=== PATIENT | female | born 1975 | race Caucasian/White ===

== ENCOUNTER 2016-06-15 10:32 | Emergency (ER) | payer SELFPAY ==
[2016-06-15 10:36] VITALS: BP 133/84
--- NOTE | 2016-06-15 10:38 | ER Document Report ---
ED Medical Screen (RME) - General Stated Complaint: CONGESTION,EAR PAIN Notes: Patient is a 40-year-old female presents emergency Department complaining of head congestion, cough nonproductive, fever and earache that started 5 days ago. Patient states that her symptoms become worse over the past 3 days with onset of earache today. did not receive a flu shot. taking benadryl and motrin. grandson did test positive for Flu this week I have greeted and performed a rapid initial assessment of this patient. A comprehensive ED assessment and evaluation of the patient, analysis of test results and completion of the medical decision making process will be conducted by additional ED providers. TRAVEL OUTSIDE OF THE [place] IN LAST 30 DAYS: No - Related Data Allergies/Adverse Reactions: Sulfa (Sulfonamide Antibiotics) Allergy (Intermediate, Verified 06/15/16 10:37) Hives Past Medical History - Social History Family history: CAD, Hyperlipidemia, Hypertension - Past Medical History Cardiac Medical History: Reports: Hx Hypertension Pulmonary Medical History: Reports: Hx Asthma, Hx Bronchitis, Hx Pneumonia Denies: Hx Tuberculosis Renal/ Medical History: Reports: Hx Kidney Stones Musculoskeltal Medical History: Reports Hx Musculoskeletal Trauma - ankle Psychiatric Medical History: Reports: Hx Attention Deficit Hyperactivity Disorder, Hx Bipolar Disorder, Hx Depression Traumatic Medical History: Reports: Hx Fractures Past Surgical History: Reports: Hx Kidney (Renal Surgery) - stone removal x5, Hx Tubal Ligation. Denies: Hx Pacemaker - Immunizations Immunizations up to date: Yes Hx Diphtheria, Pertussis, Tetanus Vaccination: Yes Physical Exam - Vital signs Vitals: Temp Pulse Resp BP Pulse Ox 98.1 F 102 H 18 133/84 H 98 06/15/16 10:35 06/15/16 10:35 06/15/16 10:35 06/15/16 10:35 06/15/16 10:35 Course - Vital Signs Vital signs: Temp Pulse Resp BP Pulse Ox 98.1 F 102 H 18 133/84 H 98 06/15/16 10:35 06/15/16 10:35 06/15/16 10:35 06/15/16 10:35 06/15/16 10:35
--- NOTE | 2016-06-15 11:09 | ER Document Report ---
ED Respiratory Problem - General Chief Complaint: Cold Symptoms Stated Complaint: CONGESTION,EAR PAIN Mode of Arrival: Ambulatory Information source: Patient TRAVEL OUTSIDE OF THE [place] IN LAST 30 DAYS: No - HPI Patient complains to provider of: Cough, Other - EAR PAIN Onset: Other - 5 DAYS Duration: Continuous Initiating Event: Allergy, URI Quality of pain: Achy, Dull Severity: Moderate Cough: Productive - SLIGHT Sputum amount: Scant Sputum color: Yellow Sputum consistency: Mucoid Associated symptoms: Cough, Earache - RIGHT, Fever, Headache, Sore Throat. denies: Short of breath, Wheezing Similar symptoms previously: Yes - NOT RECENT Recently seen / treated by doctor: No - Related Data Allergies/Adverse Reactions: Sulfa (Sulfonamide Antibiotics) Allergy (Intermediate, Verified 06/15/16 10:37) Hives Past Medical History - General Information source: Patient - Social History Smoking Status: Current Every Day Smoker Chew tobacco use (# tins/day): No Frequency of alcohol use: None Drug Abuse: None Lives with: Spouse/Significant other Family History: Reviewed & Not Pertinent Patient has suicidal ideation: No Patient has homicidal ideation: No - Past Medical History Cardiac Medical History: Reports: Hx Hypertension Pulmonary Medical History: Reports: Hx Asthma, Hx Bronchitis, Hx Pneumonia Denies: Hx Tuberculosis Neurological Medical History: Reports: None Endocrine Medical History: Reports: None Renal/ Medical History: Reports: None, Hx Kidney Stones. Denies: Hx Peritoneal Dialysis Malignancy Medical History: Reports: None GI Medical History: Reports: None Musculoskeltal Medical History: Reports Hx Musculoskeletal Trauma - ankle Psychiatric Medical History: Reports: Hx Attention Deficit Hyperactivity Disorder, Hx Bipolar Disorder, Hx Depression Traumatic Medical History: Reports: Hx Fractures Past Surgical History: Reports: Hx Kidney (Renal Surgery) - stone removal x5, Hx Tubal Ligation. Denies: Hx Pacemaker - Immunizations Immunizations up to date: Yes Hx Diphtheria, Pertussis, Tetanus Vaccination: Yes Review of Systems - Review of Systems Constitutional: See HPI EENT: See HPI Cardiovascular: No symptoms reported Respiratory: See HPI Gastrointestinal: No symptoms reported Genitourinary: No symptoms reported Female Genitourinary: denies: Musculoskeletal: No symptoms reported Skin: No symptoms reported Neurological/Psychological: No symptoms reported Physical Exam - Vital signs Vitals: Temp Pulse Resp BP Pulse Ox 98.1 F 102 H 18 133/84 H 98 06/15/16 10:35 03/18/17 10:35 06/15/16 10:35 06/15/16 10:35 06/15/16 10:35 Interpretation: Tachycardic. No: Hypotensive, Hypoxic, Tachypneic, Febrile - General General appearance: Appears well, Alert In distress: None - HEENT Head: Normocephalic Eyes: Normal Conjunctiva: Normal Ears: Normal External canal: Normal Tympanic membrane: Bulging - RIGHT, Injected Nasal: Purulent discharge Mouth/Lips: Normal Mucous membranes: Normal Pharynx: Normal Neck: Normal. No: Anterior cervical chain, Posterior cervical chain - Respiratory Respiratory status: No respiratory distress Breath sounds: Normal - Cardiovascular Rhythm: Regular Heart sounds: Normal auscultation Murmur: No - Abdominal Inspection: Normal, Obese - Extremities General upper extremity: Normal inspection General lower extremity: Normal inspection - Neurological Neuro grossly intact: Yes Cognition: Normal Orientation: AAOx4 - Psychological Associated symptoms: Normal affect, Normal mood - Skin Skin Temperature: Warm Skin Moisture: Dry Skin Color: Normal Skin Turgor: Elastic Course - Vital Signs Vital signs: Temp Pulse Resp BP Pulse Ox 98.1 F 102 H 18 133/84 H 98 06/15/16 10:35 06/15/16 10:35 06/15/16 11:00 06/15/16 10:35 06/15/16 10:35 Discharge - Discharge Clinical Impression: Otitis media Qualifiers: Otitis media type: suppurative Laterality: right Chronicity: acute Recurrence: not specified as recurrent Spontaneous tympanic membrane rupture: without spontaneous rupture Qualified Code(s): H66.001 - Acute suppurative otitis media without spontaneous rupture of ear drum, right ear Condition: Stable Disposition: HOME, SELF-CARE Instructions: Otitis Media ([facility]), Augmentin ([facility]) Additional Instructions: REST, DRINK PLENTY OF FLUIDS. TAKE AUGMENTIN DIRECTED. TAKE BENADRYL OR OTHER ANTIHISTAMINE /DECONGESTANT NEEDED FOR CONGESTION. FOLLOW UP IF NOT IMPROVING IN 3-4 DAYS. Prescriptions: Amox Tr/Potassium Clavulanate [Augmentin 500-125 Tablet] 1 each PO TID #20 tablet
== END 2016-06-15 11:51 | disposition home or self-care (01) ==
LOC: ER 10:32
DX: H66.001 Acute suppurative otitis media without spontaneous rupture of ear drum, right ear (principal); R09.81 Nasal congestion; H92.09 Otalgia, unspecified ear; F17.200 Nicotine dependence, unspecified, uncomplicated
CPT/HCPCS: 87804; 99283

== ENCOUNTER 2016-07-21 12:11 | Emergency (ER) | payer SELFPAY ==
--- NOTE | 2016-07-21 12:36 | ER Document Report ---
ED Medical Screen (RME) - General Chief Complaint: Flank Pain Stated Complaint: RIGHT SIDE FLANK PAIN Notes: Patient's complaining of pain in her right side and flank region for the past 2 days. Initially, it would come and go, but now it has become more constant. She's had previous pains of this same sort in the past when she's had kidney stones or kidney infections. She's had some nausea and vomited twice yesterday , but none today. No diarrhea. Denies fever. Patient had a tubal ligation. No other surgeries. In the past, treated for depression, but no treatment now. TRAVEL OUTSIDE OF THE [place] IN LAST 30 DAYS: No - Related Data Allergies/Adverse Reactions: Sulfa (Sulfonamide Antibiotics) Allergy (Intermediate, Verified 07/21/16 12:16) Hives Past Medical History - Social History Family history: CAD, Hyperlipidemia, Hypertension - Past Medical History Cardiac Medical History: Reports: Hx Hypertension Pulmonary Medical History: Reports: Hx Asthma, Hx Bronchitis, Hx Pneumonia Denies: Hx Tuberculosis Renal/ Medical History: Reports: Hx Kidney Stones. Denies: Hx Peritoneal Dialysis Musculoskeltal Medical History: Reports Hx Musculoskeletal Trauma - ankle Psychiatric Medical History: Reports: Hx Attention Deficit Hyperactivity Disorder, Hx Bipolar Disorder, Hx Depression Traumatic Medical History: Reports: Hx Fractures Past Surgical History: Reports: Hx Kidney (Renal Surgery) - stone removal x5, Hx Tubal Ligation. Denies: Hx Pacemaker - Immunizations Immunizations up to date: Yes Hx Diphtheria, Pertussis, Tetanus Vaccination: Yes Physical Exam - Vital signs Vitals: Temp Pulse Resp BP Pulse Ox 97.9 F 91 18 134/69 H 96 07/21/16 12:16 07/21/16 12:16 07/21/16 12:16 07/21/16 12:16 07/21/16 12:16 Course - Vital Signs Vital signs: Temp Pulse Resp BP Pulse Ox 97.9 F 91 18 134/69 H 96 07/21/16 12:16 07/21/16 12:16 07/21/16 12:16 07/21/16 12:16 07/21/16 12:16
[2016-07-21 12:57] LABS: ABSOLUTE BASOPHILS # (AUTO) 0.1 10^3/uL (0.0-0.2); ABSOLUTE EOSINOPHILS # (AUTO) 0.3 10^3/uL (0.0-0.6); ABSOLUTE LYMPHOCYTES (AUTO) 2.8 10^3/uL (0.5-4.7); ABSOLUTE MONOCYTES (AUTO) 0.8 10^3/uL (0.1-1.4); BASOPHILS % (AUTO) 0.4 % (0-2); EOSINOPHILS % (AUTO) 2.2 % (0-6); HEMATOCRIT 39.3 % (36.0-47.0); HEMOGLOBIN 13.3 g/dL (12.0-15.5); HGB HCT DIFFERENCE 0.6; LYMPHOCYTES % (AUTO) 19.8 % (13-45); MEAN CORPUSCULAR HEMOGLOBIN 28.2 pg (27.0-33.4); MEAN CORPUSCULAR HGB CONC 33.7 g/dL (32.0-36.0); MEAN CORPUSCULAR VOLUME 84 fl (80-97); MONOCYTES % (AUTO) 5.8 % (3-13); RED CELL DISTRIBUTION WIDTH 13.3 % (11.5-14.0); SEGMENTED NEUTROPHILS % (AUTO) 71.8 % (42-78)
[2016-07-21 13:03] LABS: AMORPHOUS SEDIMENT,URINE TRACE /HPF; APPEARANCE,URINE SLIGHTLY-CLOUDY; BILIRUBIN,URINE NEGATIVE (NEGATIVE); GLUCOSE, URINE NEGATIVE (NEGATIVE); KETONES,URINE NEGATIVE (NEGATIVE); LEUKOCYTE ESTERASE,URINE MODERATE (NEGATIVE); NITRITE,URINE NEGATIVE (NEGATIVE); PROTEIN,URINE NEGATIVE (NEGATIVE); URINE SPECIFIC GRAVITY 1.011; UROBILINOGEN,URINE NEGATIVE mg/dL (<2.0)
[2016-07-21 13:13] LABS: ALANINE AMINOTRANSFERASE 24 U/L (9-52); ALBUMIN 3.9 g/dL (3.5-5.0); ALKALINE PHOSPHATASE 94 U/L (38-126); ANION GAP 11 (5-19); ASPARTATE AMINO TRANSFERASE 19 U/L (14-36); BILIRUBIN,DIRECT 0.2 mg/dL (0.0-0.4); BILIRUBIN,TOTAL 0.3 mg/dL (0.2-1.3); BLOOD UREA NITROGEN 15 mg/dL (7-20); CARBON DIOXIDE 23 mmol/L (22-30); CHLORIDE 105 mmol/L (98-107); CREATININE RESULT 1.05 mg/dL (0.52-1.25); GLUCOSE 89 mg/dL (75-110); LIPASE 89.3 U/L (23-300); POTASSIUM 4.4 mmol/L (3.6-5.0); SODIUM 139.4 mmol/L (137-145); TOTAL PROTEIN 6.5 g/dL (6.3-8.2)
[2016-07-21] MEDS ORDERED: KETOROLAC TROMETHAMINE 60 MG/2 ML SDV IM ONE (13:49)
[2016-07-21] MEDS ORDERED: NITROFURANTOIN MONOHYD/M-CRYST 100 MG CAPSULE PO ONE (13:49)
--- NOTE | 2016-07-21 13:50 | ER Document Report ---
ED GI/ - General Time seen by provider: 13:40 Mode of Arrival: Ambulatory Information source: Patient TRAVEL OUTSIDE OF THE [place] IN LAST 30 DAYS: No - HPI Patient complains to provider of: Flank pain Onset: Other - see HPI note Similar symptoms previously: No Recently seen / treated by doctor: No <SHIRLEY AU - Last Filed: 07/21/16 15:47> <MICH BENJAMIN - Last Filed: 07/22/16 05:37> - General Chief Complaint: Flank Pain Stated Complaint: RIGHT SIDE FLANK PAIN Notes: Patient is a 40-year-old female patient of the emergency department for right flank pain. Patient states the pain started 3 days ago. Patient states she has also had nausea and vomiting with painful urination. Patient has a history of kidney stones and UTIs. Patient states that initially her right flank plain , was waxing and waning and now it has become more constant. Patient states that she has pain before she had kidney stones or a UTI. Patient had some nausea and vomiting yesterday but none today. Patient denies any diarrhea or fever. Patient is allergic to sulfa drugs. (SHIRLEY AU) - Related Data Allergies/Adverse Reactions: Sulfa (Sulfonamide Antibiotics) Allergy (Intermediate, Verified 07/21/16 12:16) Hives Past Medical History - General Information source: Patient - Social History Smoking Status: Current Every Day Smoker Chew tobacco use (# tins/day): No Frequency of alcohol use: None Drug Abuse: None Family History: None Patient has suicidal ideation: No Patient has homicidal ideation: No - Past Medical History Cardiac Medical History: Reports: Hx Hypertension Pulmonary Medical History: Reports: Hx Asthma, Hx Bronchitis, Hx Pneumonia Renal/ Medical History: Reports: Hx Kidney Stones Musculoskeltal Medical History: Reports Hx Musculoskeletal Trauma - ankle Psychiatric Medical History: Reports: Hx Attention Deficit Hyperactivity Disorder, Hx Bipolar Disorder, Hx Depression Traumatic Medical History: Reports: Hx Fractures Past Surgical History: Reports: Hx Kidney (Renal Surgery) - stone removal x5, Hx Tubal Ligation - Immunizations Immunizations up to date: Yes Hx Diphtheria, Pertussis, Tetanus Vaccination: Yes <SHIRLEY AU - Last Filed: 07/21/16 15:47> Review of Systems - Review of Systems Constitutional: No symptoms reported EENT: No symptoms reported Cardiovascular: No symptoms reported Respiratory: No symptoms reported Gastrointestinal: See HPI, Nausea, Vomiting Genitourinary: See HPI, Dysuria, Flank pain Female Genitourinary: No symptoms reported Musculoskeletal: No symptoms reported Skin: No symptoms reported Hematologic/Lymphatic: No symptoms reported Neurological/Psychological: No symptoms reported -: Yes All other systems reviewed and negative <SHIRLEY AU - Last Filed: 07/21/16 15:47> Physical Exam - Vital signs Interpretation: Normal - General General appearance: Appears well, Alert In distress: Mild - HEENT Head: Normocephalic, Atraumatic Eyes: Normal Pupils: PERRL Mucous membranes: Moist - Respiratory Respiratory status: No respiratory distress Chest status: Nontender Breath sounds: Normal Chest palpation: Normal - Cardiovascular Rhythm: Regular Heart sounds: Normal auscultation Murmur: No - Abdominal Inspection: Normal Distension: No distension Bowel sounds: Normal Tenderness: Nontender Organomegaly: No organomegaly - Back Back: Normal, Nontender - Extremities General upper extremity: Normal inspection, Normal ROM, Normal strength General lower extremity: Normal inspection, Normal ROM, Normal strength - Neurological Neuro grossly intact: Yes Cognition: Normal Orientation: AAOx4 [place] Coma Scale Eye Opening: Spontaneous [place] Coma Scale Verbal: Oriented [place] Coma Scale Motor: Obeys Commands [place] Coma Scale Total: 15 Speech: Normal Sensory: Normal - Psychological Associated symptoms: Normal affect, Normal mood - Skin Skin Temperature: Warm Skin Moisture: Dry <SHIRLEY AU - Last Filed: 07/21/16 15:47> Course - Laboratory Result Diagrams: 07/21/16 12:35 07/21/16 12:35 <CRISTIANMAYANKSHIRLEY - Last Filed: 07/21/16 15:47> - Laboratory Result Diagrams: 07/21/16 12:35 07/21/16 12:35 <MICH BENJAMIN - Last Filed: 07/22/16 05:37> - Re-evaluation Re-evalutation: 07/21/16 13:52 Patient presents to the emergency department with right flank pain 2 days and urinary symptoms. We'll been nausea but no vomiting. Sees a primary care community clinic but hasn't seen them and months. Patient has multiple ED visits including recurrent flank pain multiple CT scans for kidney stones. She is well-appearing nontoxic in no acute distress afebrile with vital signs stable no sepsis abdomen is soft no guarding rebound rigidity on serial abdominal examinations. Urine has blood in it positive for leukocyte esterase. Patient is given Toradol Macrobid. After reviewing the number of CAT scans that she had it all Yudith is an emergent condition she is in no acute distress no reproducible tenderness on examination or to follow-up with the clinic in 12-24 hours recheck reevaluation in her urologist as needed. She is to stop drinking soda and tea. I gave her Naprosyn Macrobid and Zofran. Discussed reasons for ED return sooner 07/22/16 05:37 (MICH BENJAMIN) - Vital Signs Vital signs: Temp Pulse Resp BP Pulse Ox 97.8 F 78 20 125/80 98 07/21/16 14:27 07/21/16 14:27 07/21/16 14:27 07/21/16 14:27 07/21/16 14:27 - Laboratory Laboratory results interpreted by me: 07/21/16 07/21/16 07/21/16 12:35 12:35 12:35 WBC 14.0 H Absolute Neutrophils 10.0 H Est GFR (Non-Af Amer) 58 L Urine Blood LARGE H Ur Leukocyte Esterase MODERATE H Discharge <SHIRLEY AU - Last Filed: 07/21/16 15:47> <MICH BENJAMIN - Last Filed: 07/22/16 05:37> - Discharge Clinical Impression: flank pain, UTI, history of kidney stone Condition: Stable Disposition: HOME, SELF-CARE Additional Instructions: Flank Pain We weren't able to prove an exact cause for your flank pain. Pain in the flank can be caused by a muscle strain or spasm. Sometimes a kidney stone causes pain, but can't be found on our tests. Infection in the kidney should be evident on a urine test. Early shingles can occasionally cause flank pain, without the rash that proves the diagnosis. On rare occasions, disease of the pancreas, aorta, spleen, or colon can create pain in the flank. At this time, there's no evidence of a dangerous condition, and it seems safe for you to be at home. If the pain goes away and does not come back, no further testing will be needed. If pain persists, or becomes more severe, we may need to repeat some tests or order additional new testing. Blood in the urine, urgency to urinate frequently, and pain that radiates to the groin can indicate a kidney stone. Fever may mean that the pain is due to infection, either of the kidney or the colon (diverticulitis). If your pain is early shingles, you should develop an eruption of blisters in the painful area within a few days. Call the doctor or return if you have pain that is spreading or becoming more severe, pain that does not resolve with time, fever, or any other new symptoms. Urinary Tract Infection Your evaluation indicates that you have a urinary tract infection. This is due to germs growing in the bladder. This is a common problem. This infection usually responds quickly to antibiotics. Your antibiotic should be taken exactly as prescribed. Drink plenty of fluids -- three to four quarts a day. Occasionally, a bladder anesthetic will be prescribed to help stop the feeling of urgency until the antibiotic has a chance to clear the infection. This may cause your urine to be dark orange. Certain urine infections require a culture. If the doctor obtained a culture, the results will be back in two days. You should call to see if a change in treatment is needed. A repeat urinalysis after you finish treatment is often recommended. The physician will let you know if further testing is required. Call the doctor if you develop fever, chills, flank pain, inability to urinate, or blood in the urine. Prescriptions: Naproxen [Naprosyn 250 mg Tablet] 250 mg PO DAILY PRN #12 tablet PRN Reason: Nitrofurantoin/Nitrofuran Mac [Macrobid 100 mg Capsule] 1 tab PO BID #20 capsule Ondansetron [Zofran Odt 4 mg Tablet] 1 - 2 tab PO Q4H PRN #15 tab.rapdis PRN Reason: For Nausea/Vomiting Referrals: [facility] [Provider Group] - Follow up tomorrow (Call for an appointment to be seen in follow-up in 1-2 days return for increasing worsening or new symptoms) Scribe Attestation: 07/21/16 13:54 I personally performed the services described in the documentation reviewed the documentation recorded by my scribe in my presence and it accurately and completely records my words and actions (MICH BENJAMIN) Scribe Documentation - Scribe Written by Scribe:: Shirley Au 07/21/16 15:50 acting as scribe for Dr.:: Live <SHIRLEY AU - Last Filed: 07/21/16 15:47>
[2016-07-21 14:45] VITALS: BP 125/80
== END 2016-07-21 14:24 | disposition home or self-care (01) ==
LOC: ER 12:11
DX: N39.0 Urinary tract infection, site not specified (principal); R10.9 Unspecified abdominal pain; R11.2 Nausea with vomiting, unspecified; F17.200 Nicotine dependence, unspecified, uncomplicated
CPT/HCPCS: 99284; 96372; 36415; 83690; 84703; 85025; 80053; 81001; J1885; J8499

== ENCOUNTER 2016-09-03 19:38 | Emergency (ER) | payer SELFPAY ==
[2016-09-03 20:12] VITALS: BP 141/87
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
[2016-09-03] MEDS ORDERED: IBUPROFEN 800 MG TABLET PO ONE (21:05)
[2016-09-03] MEDS ORDERED: MECLIZINE HCL 25 MG TABLET PO ONE (21:05)
[2016-09-03] MEDS ORDERED: ACETAMINOPHEN 325 MG TABLET PO ONE (21:05)
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
== END 2016-09-03 22:34 | disposition home or self-care (01) ==
LOC: ER 19:38
DX: S29.012A Strain of muscle and tendon of back wall of thorax, initial encounter (principal); S06.0X0A Concussion without loss of consciousness, initial encounter; R42 Dizziness and giddiness; M54.6 Pain in thoracic spine; R11.0 Nausea; V87.7XXA Person injured in collision between other specified motor vehicles (traffic), initial encounter
CPT/HCPCS: 72070; 99284

== ENCOUNTER 2016-09-28 12:42 | Emergency (ER) | payer SELFPAY ==
--- NOTE | 2016-09-28 13:09 | ER Document Report ---
ED Medical Screen (RME) - General Chief Complaint: Inability to Void Stated Complaint: UNABLE TO URINATE Time Seen by Provider: 09/28/16 12:56 Notes: Patient says she is experiencing pain in her lower mid anterior abdomen, and the suprapubic region, that began yesterday. Patient has not had any bowel movement and only a few drops of urine passed in the past 2 days. She never had this happen before. She was nauseated but had some Zofran that she took at home. She has been constipated with no bowel movement for 5 days, her normal being about every other day. Has some symptoms suggestive of a UTI. No fever. No abdominal surgeries except for tubal ligation. TRAVEL OUTSIDE OF THE [place] IN LAST 30 DAYS: No - Related Data Allergies/Adverse Reactions: Sulfa (Sulfonamide Antibiotics) Allergy (Intermediate, Verified 09/28/16 12:48) Hives Past Medical History - Social History Chew tobacco use (# tins/day): No Frequency of alcohol use: None Drug Abuse: None Family history: CAD, Hyperlipidemia, Hypertension - Past Medical History Cardiac Medical History: Reports: Hx Hypertension Pulmonary Medical History: Reports: Hx Asthma, Hx Bronchitis, Hx Pneumonia Denies: Hx Tuberculosis Renal/ Medical History: Reports: Hx Kidney Stones. Denies: Hx Peritoneal Dialysis Musculoskeltal Medical History: Reports Hx Musculoskeletal Trauma - ankle Psychiatric Medical History: Reports: Hx Attention Deficit Hyperactivity Disorder, Hx Bipolar Disorder, Hx Depression Traumatic Medical History: Reports: Hx Fractures Past Surgical History: Reports: Hx Kidney (Renal Surgery) - stone removal x5, Hx Tubal Ligation. Denies: Hx Pacemaker - Immunizations Immunizations up to date: Yes Hx Diphtheria, Pertussis, Tetanus Vaccination: Yes Physical Exam - Vital signs Vitals: Temp Pulse Resp BP Pulse Ox 98.0 F 93 18 132/82 H 97 09/28/16 12:46 09/28/16 12:46 09/28/16 12:46 09/28/16 12:46 09/28/16 12:46 Course - Vital Signs Vital signs: Temp Pulse Resp BP Pulse Ox 98.0 F 93 18 132/82 H 97 09/28/16 12:46 09/28/16 12:46 09/28/16 12:46 09/28/16 12:46 09/28/16 12:46
[2016-09-28 13:30] LABS: ABSOLUTE BASOPHILS # (AUTO) 0.1 10^3/uL (0.0-0.2); ABSOLUTE EOSINOPHILS # (AUTO) 0.3 10^3/uL (0.0-0.6); ABSOLUTE LYMPHOCYTES (AUTO) 2.6 10^3/uL (0.5-4.7); ABSOLUTE MONOCYTES (AUTO) 0.6 10^3/uL (0.1-1.4); ABSOLUTE NEUT (AUTO) 6.6 10^3/uL (1.7-8.2); BASOPHILS % (AUTO) 0.5 % (0-2); EOSINOPHILS % (AUTO) 3.3 % (0-6); HEMATOCRIT 42.9 % (36.0-47.0); HEMOGLOBIN 14.3 g/dL (12.0-15.5); LYMPHOCYTES % (AUTO) 25.8 % (13-45); MEAN CORPUSCULAR HEMOGLOBIN 28.4 pg (27.0-33.4); MEAN CORPUSCULAR HGB CONC 33.3 g/dL (32.0-36.0); MEAN CORPUSCULAR VOLUME 85 fl (80-97); RED BLOOD COUNT 5.03 10^6/uL (3.72-5.28); RED CELL DISTRIBUTION WIDTH 13.6 % (11.5-14.0); SEGMENTED NEUTROPHILS % (AUTO) 64.4 % (42-78); WHITE BLOOD COUNT 10.2 10^3/uL (4.0-10.5)
[2016-09-28 13:53] LABS: ALANINE AMINOTRANSFERASE 28 U/L (9-52); ALBUMIN 3.9 g/dL (3.5-5.0); ALKALINE PHOSPHATASE 81 U/L (38-126); ANION GAP 11 (5-19); ASPARTATE AMINO TRANSFERASE 20 U/L (14-36); BILIRUBIN,DIRECT 0.3 mg/dL (0.0-0.4); BILIRUBIN,TOTAL 0.6 mg/dL (0.2-1.3); BLOOD UREA NITROGEN 13 mg/dL (7-20); CALCIUM 8.8 mg/dL (8.4-10.2); CARBON DIOXIDE 24 mmol/L (22-30); CHLORIDE 104 mmol/L (98-107); CREATININE RESULT 0.95 mg/dL (0.52-1.25); GLUCOSE 110 mg/dL (75-110); LIPASE 75.9 U/L (23-300); POTASSIUM 4.3 mmol/L (3.6-5.0); SODIUM 139.2 mmol/L (137-145); TOTAL PROTEIN 6.9 g/dL (6.3-8.2)
--- NOTE | 2016-09-28 14:45 | ER Document Report ---
ED GI/ - General Chief Complaint: Inability to Void Stated Complaint: UNABLE TO URINATE Time Seen by Provider: 09/28/16 12:56 Notes: Patient is a 40-year-old female who comes emergency department complaining of urinary retention and constipation. Patient admits to abdominal fullness and bloating has become increasingly worse over the past 5 days. She states her last normal bowel movement was 5 days ago with no evidence of blood or dark tarry stool. She denies any nausea or vomiting. Any fevers or chills. She also states that she has not been able to urinate more than some trouble for the past 2 days. She admits to flank pain on the left. Past medical history significant for history of kidney stones Past surgical history significant for tubal ligation Daily smoker, admits to social alcohol and denies any drug use. TRAVEL OUTSIDE OF THE [place] IN LAST 30 DAYS: No - Related Data Allergies/Adverse Reactions: Sulfa (Sulfonamide Antibiotics) Allergy (Intermediate, Verified 09/28/16 12:48) Hives Past Medical History - Social History Smoking Status: Current Every Day Smoker Chew tobacco use (# tins/day): No Frequency of alcohol use: None Drug Abuse: None Family History: None Patient has suicidal ideation: No Patient has homicidal ideation: No - Past Medical History Cardiac Medical History: Reports: Hx Hypertension Pulmonary Medical History: Reports: Hx Asthma, Hx Bronchitis, Hx Pneumonia Denies: Hx Tuberculosis Renal/ Medical History: Reports: Hx Kidney Stones. Denies: Hx Peritoneal Dialysis Musculoskeltal Medical History: Reports Hx Musculoskeletal Trauma - ankle Psychiatric Medical History: Reports: Hx Attention Deficit Hyperactivity Disorder, Hx Bipolar Disorder, Hx Depression Traumatic Medical History: Reports: Hx Fractures Past Surgical History: Reports: Hx Kidney (Renal Surgery) - stone removal x5, Hx Tubal Ligation. Denies: Hx Pacemaker - Immunizations Immunizations up to date: Yes Hx Diphtheria, Pertussis, Tetanus Vaccination: Yes Review of Systems - Review of Systems Constitutional: No symptoms reported Gastrointestinal: See HPI Genitourinary: See HPI Female Genitourinary: No symptoms reported -: Yes All other systems reviewed and negative Physical Exam - Vital signs Vitals: Temp Pulse Resp BP Pulse Ox 98.0 F 93 18 132/82 H 97 09/28/16 12:46 09/28/16 12:46 09/28/16 12:46 09/28/16 12:46 09/28/16 12:46 - Notes Notes: PHYSICAL EXAM GENERAL: Alert, interacts well. HEAD: Normocephalic, atraumatic. LUNGS: Clear to auscultation bilaterally, no wheezes, rales, or rhonchi. No respiratory distress. HEART: Regular rate and rhythm. No murmurs, gallops, or rubs. ABDOMEN: Soft, obese, nondistended, minimally tender in the LLQ and suprapubic area. No guarding, rebound, or rigidity.. Bowel sounds present in all 4 quadrants. EXTREMITIES: Moves all 4 extremities spontaneously. No edema, radial and dorsalis pedis pulses 2/4 bilaterally. No cyanosis. NEUROLOGICAL: Alert and oriented x4. Normal speech. PSYCH: Normal affect, normal mood. SKIN: Warm, dry, normal turgor. No rashes or lesions noted Course - Re-evaluation Re-evalutation: 09/28/16 16:29 Patient is a 40-year-old female who is hemodynamically stable, no acute distress and afebrile. Laboratory evaluation showed stable CBC and CMP are within normal limits, no evidence of leukocytosis, anemia, abnormal kidney or liver function. Urinalysis had any evidence of UTI. CT of the abdomen and pelvis for kidney stone protocol shows a 2 mm stone at the UVJ on the left ureter without any evidence of hydronephrosis bilaterally. Also evidence of stool throughout the colon without any evidence of obstruction or perforation. Patient is tolerating p.o. without any difficulty. Will discharge home constipation regimen and medication for kidney stone and to follow-up with urology. Patient is agreeable with plan. Medina was removed at the bedside. - Vital Signs Vital signs: Temp Pulse Resp BP Pulse Ox 98.0 F 93 18 132/82 H 97 09/28/16 12:46 09/28/16 12:46 09/28/16 12:46 09/28/16 12:46 09/28/16 12:46 - Laboratory Result Diagrams: 09/28/16 13:20 09/28/16 13:20 Laboratory results interpreted by me: 09/28/16 14:35 Urine Blood SMALL H - Diagnostic Test Radiology reviewed: Image reviewed, Reports reviewed Discharge - Discharge Clinical Impression: Kidney stone Constipation Qualifiers: Constipation type: unspecified constipation type Qualified Code(s): K59.00 - Constipation, unspecified Condition: Good Disposition: HOME, SELF-CARE Additional Instructions: ABDOMINAL PAIN: There are many causes of abdominal pain. Pain can mean a serious problem requiring surgery (such as appendicitis). It can also be an innocent problem that goes away on its own (such as a viral infection). Often, time must pass to determine the cause of pain. The physician does not feel that hospitalization is necessary, at present. Things may change within the next 24 hours. Call the doctor or come back for re- examination if any problems occur, such as: (1) Pain that becomes more severe, steady, or becomes concentrated in one specific area. Also, pain that is more severe with movement or coughing. (2) Vomiting that persists or becomes more frequent. (3) Blood in the vomitus, urine, or bowel movements. Blood in the stool may have a tarry or black appearance. (4) Shaking chills or fever greater than 100 degrees F. (5) The abdomen becomes more distended or swollen. (6) Bowel movements cease. (7) Failure to improve as expected. NORMAL EXAM AND WORKUP: At this time, your examination and workup show no significant abnormality. No significant abnormal physical findings are noted. All laboratory, EKG, and imaging (x-ray, CT scans, ultrasound) studies that were ordered show no significant abnormality. Although your examination and all studies that were ordered showed no significant abnormal finding, there are no examinations and no studies that are 100% accurate. There is always the possibility that some abnormality could exist and not be detected with physical examination or within the limits and capabilities of laboratory and other studies. You should return or follow up as you were instructed on your visit today for further evaluation if your symptoms do not resolve. CONSTIPATION: Constipation is a common problem. It is especially likely as you get older. Constipation is a common cause of abdominal pain, but sometimes causes no symptoms at all. Causes of constipation include certain medications, dehydration, diets, inactivity, and low-fiber intake. Rarely, it can be a symptom of underlying disease. The physician has evaluated you for this. Avoid constipation by eating a diet high in fiber, fruits, and vegetables. Drink plenty of liquids. Get regular exercise. If possible, avoid constipating medicines like narcotic pain medication. Some vitamin tablets can cause constipation. Stool softeners may be needed for difficult cases. An excellent stool softener is Konsyl which is available at [employer], and [employer] drug store. Just add a teaspoon to a glass of pineapple or orange juice daily or twice a day if needed. Laxatives are useful for occasional constipation. You should use them only when necessary. Too-frequent use can make your bowels dependent on them. Some over the counter laxatives available without prescription are: Milk of Magnesia, 1-2 tablespoons twice a day Dulcolax, 5 mg pill or 10 mg suppository. Citrate of Magnesia, 4-5 ounces a day for a day or two For acute constipation, Fleet's Enemas and Dulcolax suppositories are helpful. Chronic, briquette maker use of laxatives or enemas is not a good idea. Your bowel may become dependant on them. You do not need to have a bowel movement every day. Many people do fine with a bowel movement every three or four days. You should call your doctor or return for re-evaluation if you pass blood in the stool, or if you develop fever or increasing abdominal pain. BULK LAXATIVES: Bulk laxatives make the stool softer and bulkier. They're useful for preventing constipation. You can choose between psyllium, methylcellulose, and polycarbophil. They are available without a prescription. Psyllium brand names include Konsyl, Metamucil, Perdiem, Effer-Syllium and Hydrocil. It's available as powder, flavored drink powder, or chewable. The usual dose of psyllium powder is one heaping teaspoon in water each morning, increasing to twice a day if needed. [place] juice can disguise the slightly grainy texture. Methylcellulose is marketed as Citrucel and other brands. The average dose is two grams in a cup of water one to three times a day. Polycarbophil is marketed as Fiber-Con. Take two tablets with a cup of water one to three times a day. LAXATIVE: A laxative agent has been prescribed for your condition. This should result in passage of stool within 12 hours. Some mild intestinal cramping is common as the hard stool begins to move. You may have loose or runny stools for a short time. Contact your doctor if there is severe cramping, vomiting, or passage of blood. Return for further care if this medicine fails to improve your condition. KIDNEY STONE: You are passing or have passed a kidney stone. These stones are usually due to increased calcium or uric acid concentrations in your urine. Stones within the kidney itself are not painful. The pain occurs as the stone leaves the kidney to pass down the long tube, called the ureter, leading to the bladder. If the stone is small, it will usually pass by itself. Most patients can pass the stone at home. You will usually receive medications for pain, nausea or vomiting, and sometimes a medication to assist in passing the kidney stone. However, if the pain is very severe or if vomiting prevents you from taking oral pain medications, you may need to return for further treatment. Drink three or four quarts of fluids per day. You will be given pain medication (if needed) and urine strainers. Strain all your urine to see if the stone passes. If your doctor has asked you to bring the stone in for analysis, return with the stone once it has passed. Return if pain or vomiting become severe, if you develop a high fever, if you are unable to pass your urine, or if other unusual symptoms occur. ANTINAUSEA MEDICATION: You have been given a medication to suppress nausea and vomiting. This type of medication can be given as a shot, pill, or suppository. It will usually last for many hours. Pills and shots usually last six to eight hours, suppositories last about 12 hours. For the typical illness, only one or two doses of the medication may be necessary. Mild lightheadedness may occur. This type of medicine can cause drowsiness. Do not drive or operate dangerous machinery while under its influence. Do not mix with alcohol. See your doctor at once if you have muscle spasms or tightness, or uncontrollable motions (particularly of the neck, mouth, or jaw). Persistent vomiting or severe lightheadedness should also be evaluated by the physician. FLOMAX (tamsulosin): Flomax is a medicine that shrinks the prostate gland. It helps relieve symptoms of benign prostatic hypertrophy, such as frequent urination, weak stream, and inadequate emptying. It has been shown to dilate the ureter (tube leading from the kidney to the bladder) and help in passing kidney stones Flomax usually causes no side effects. You may notice slight tiredness and dizziness for a few days. Some patients develop nasal congestion. Rarely, impotence can occur. If the symptoms are bothersome and don't improve with continued use, call your doctor. Contact your doctor or return if you have fainting spells, severe weakness or dizziness, shortness of breath, or rash. FOLLOW-UP CARE: If you have been referred to a physician for follow-up care, call the physician s office for an appointment as you were instructed or within the next two days. If you experience worsening or a significant change in your symptoms, notify the physician immediately or return to the Emergency Department at any time for re-evaluation. Prescriptions: Tramadol HCl 50 mg PO Q8HP PRN #15 tablet PRN Reason: Tamsulosin HCl [Flomax 0.4 mg Cap.sr] 0.4 mg PO DAILY #7 cap.sr.24h Referrals: [facility] [Provider Group] - Follow up in 3-5 days
--- NOTE | 2016-09-28 15:44 | RADIOLOGY REPORT (SQ) ---
EXAM DESCRIPTION: CT LTD RENAL STONE PROTOCOL ON COMPLETED DATE/TIME: 09/28/2016 2:58 pm REASON FOR STUDY: urinary retention h/o kidney stones COMPARISON: 2015. TECHNIQUE: CT scan of the abdomen and pelvis performed without intravenous or oral contrast. Images reviewed with lung, soft tissue, and bone windows. Reconstructed coronal and sagittal MPR images revi ewed. All images stored on PACS. All CT scanners at this facility use dose modulation, iterative reconstruction, and/or weight based d osing when appropriate to reduce radiation dose to as low as reasonably achievable (ALARA). [facility]: Dose Right [facility]: CareDose [facility]: Dose Right [facility]: Teradose 4D [facility]: Smart Subtech RADIATION DOSE: Up-to-date CT equipment and radiation dose reduction techniques were employed. CTDIv ol: 18.8 mGy. DLP: 1051 mGy-cm.mGy. LIMITATIONS: None. FINDINGS: LOWER CHEST: No significant findings. No nodules or infiltrates. NON-CONTRASTED LIVER, SPLEEN, ADRENALS: Evaluation limited by lack of IV contrast. No identified sign ificant masses. PANCREAS: No masses. No peripancreatic inflammatory changes. GALLBLADDER: No identified stones by CT criteria. No inflammatory changes to suggest cholecystitis. RIGHT KIDNEY AND URETER: Small calcifications, potentially related to medullary calcinosis. No obstr uctive changes. No ureteral stones. No gross mass. LEFT KIDNEY AND URETER: At least 1 upper pole cyst. Minimal punctate inferior pole nephrolithiasis i s suggested. No hydronephrosis. The ureter is not dilated. Potential tiny stone at the left UVJ me asuring just over 2 mm. Not clearly identified previously. Numerous additional pelvic phleboliths. AORTA AND RETROPERITONEUM: No aneurysm. No retroperitoneal masses or adenopathy. BOWEL AND PERITONEAL CAVITY: Fair amount of stool in the colon. No mechanical bowel obstruction. Di verticulosis in the sigmoid. No definitive active diverticulitis. APPENDIX: Normal. PELVIS, BLADDER, AND ABDOMINAL WALL:As above. Bladder otherwise decompressed by Medina catheter. BONES: No significant findings. OTHER: No other significant finding. IMPRESSION: 1. Suspicious for a new stone lodged at the left UVJ, but without any evidence of signif icant hydronephrosis. This stone measures just at 2 mm. Other findings as above. No other acute ab normality detected. TECHNICAL DOCUMENTATION: JOB ID: [id number] Quality ID # [id number]: Final reports with documentation of one or more dose reduction techniques (e.g., Au tomated exposure control, adjustment of the mA and/or kV according to patient size, use of iterative reconstruction technique) 2010 [employer] All Rights Reserved
[2016-09-28 15:52] LABS: APPEARANCE,URINE CLEAR; BILIRUBIN,URINE NEGATIVE (NEGATIVE); GLUCOSE, URINE NEGATIVE (NEGATIVE); KETONES,URINE NEGATIVE (NEGATIVE); LEUKOCYTE ESTERASE,URINE NEGATIVE (NEGATIVE); NITRITE,URINE NEGATIVE (NEGATIVE); PROTEIN,URINE NEGATIVE (NEGATIVE); URINE SPECIFIC GRAVITY 1.014; UROBILINOGEN,URINE NEGATIVE mg/dL (<2.0)
[2016-09-28 16:59] VITALS: BP 133/80
[2016-09-28] MEDS ORDERED: TRAMADOL HCL 50 MG TABLET PO ONE (17:33)
== END 2016-09-28 17:36 | disposition home or self-care (01) ==
LOC: ER 12:42
DX: N20.0 Calculus of kidney (principal); R33.9 Retention of urine, unspecified; K59.00 Constipation, unspecified; R14.0 Abdominal distension (gaseous); F17.200 Nicotine dependence, unspecified, uncomplicated; I10 Essential (primary) hypertension; Z87.442 Personal history of urinary calculi; Z98.51 Tubal ligation status; Z88.2 Allergy status to sulfonamides
CPT/HCPCS: 36415; 51702; 76380; 80053; 81001; 83690; 84702; 85025; 99284

== ENCOUNTER 2017-02-14 09:58 | Emergency (ER) | payer SELFPAY ==
[2017-02-14] MEDS ORDERED: BENZONATATE 100 MG CAPSULE PO ONE (10:14)
--- NOTE | 2017-02-14 10:31 | ER Document Report ---
ED General - General Mode of Arrival: Ambulatory Information source: Patient TRAVEL OUTSIDE OF THE [place] IN LAST 30 DAYS: No <CHINA AMADOR - Last Filed: 02/14/17 10:56> <ЕЛЕНА CARRERO - Last Filed: 02/14/17 11:10> - General Chief Complaint: Flu Symptoms Stated Complaint: FEVER VOMITING Time Seen by Provider: 02/14/17 10:09 Notes: Patient is a 41 year old female presenting to the emergency department complaining of general malaise onset a week ago. Patient states her symptoms are vomiting, fever, coughing, congestion, sore throat, and abdominal pain when vomiting. Patient also states she has had left ear pain onset last night. Patient denies diarrhea. (CHINA AMADOR) - Related Data Allergies/Adverse Reactions: Sulfa (Sulfonamide Antibiotics) Allergy (Intermediate, Verified 02/14/17 10:03) Hives Past Medical History - General Information source: Patient - Social History Smoking Status: Current Some Day Smoker Chew tobacco use (# tins/day): No Frequency of alcohol use: Occasional Drug Abuse: None Family History: None Patient has suicidal ideation: No Patient has homicidal ideation: No - Past Medical History Cardiac Medical History: Reports: Hx Hypertension Pulmonary Medical History: Reports: Hx Asthma, Hx Bronchitis, Hx Pneumonia Denies: Hx Tuberculosis Renal/ Medical History: Reports: Hx Kidney Stones. Denies: Hx Peritoneal Dialysis Musculoskeltal Medical History: Reports Hx Musculoskeletal Trauma - ankle Psychiatric Medical History: Reports: Hx Attention Deficit Hyperactivity Disorder, Hx Bipolar Disorder, Hx Depression Traumatic Medical History: Reports: Hx Fractures Past Surgical History: Reports: Hx Kidney (Renal Surgery) - stone removal x5, Hx Tubal Ligation. Denies: Hx Pacemaker - Immunizations Immunizations up to date: Yes Hx Diphtheria, Pertussis, Tetanus Vaccination: Yes <CHINA AMADOR - Last Filed: 02/14/17 10:56> - Social History Smoking Education Provided: Yes - >4 mins <ЕЛЕНА CARRERO - Last Filed: 02/14/17 11:10> Review of Systems - Review of Systems Constitutional: See HPI, Fever EENT: See HPI, Ear pain Cardiovascular: No symptoms reported Respiratory: See HPI, Cough Gastrointestinal: See HPI, Abdominal pain, Nausea, Vomiting. denies: Diarrhea Genitourinary: No symptoms reported Female Genitourinary: No symptoms reported Musculoskeletal: No symptoms reported Skin: No symptoms reported Hematologic/Lymphatic: No symptoms reported Neurological/Psychological: No symptoms reported -: Yes All other systems reviewed and negative <CHINA AMADOR - Last Filed: 02/14/17 10:56> Physical Exam - General General appearance: Appears well - HEENT Tympanic membrane: Injected - left Nasal: Clear rhinorrhea - thick, Other - No cobblestoning. Turbinate edema to left. - Respiratory Respiratory status: No respiratory distress Breath sounds: Normal - Cardiovascular Rhythm: Regular <CHINA AMADOR - Last Filed: 02/14/17 10:56> - HEENT Head: Normocephalic Mucous membranes: Moist Pharynx: Post nasal drainage Neck: Normal - Respiratory Breath sounds: No: Wheezing - Cardiovascular Normal capillary refill: Yes - Abdominal Inspection: Obese - Neurological Neuro grossly intact: Yes - Skin Skin Temperature: Warm Skin Moisture: Dry Skin Color: Normal <ЕЛЕНА CARRERO - Last Filed: 02/14/17 11:10> - Vital signs Vitals: Temp Pulse Resp BP Pulse Ox 98.4 F 87 25 H 151/94 H 96 02/14/17 10:01 02/14/17 10:01 02/14/17 10:01 02/14/17 10:01 02/14/17 10:01 Course <CHINA AMADOR - Last Filed: 02/14/17 10:56> <ЕЛЕНА CARRERO - Last Filed: 02/14/17 11:10> - Re-evaluation Re-evalutation: 02/14/17 10:52 Chest x-ray shows no acute process, symptoms consistent with viral infection, injection of Decadron can decrease length of sore throat, patient is offered Decadron, instructed on use of Tessalon Perles and antihistamines. Nasal saline rinses. Discharged home. (ЕЛЕНА CARRERO) - Vital Signs Vital signs: Temp Pulse Resp BP Pulse Ox 99.0 F 86 20 138/82 H 96 02/14/17 11:04 02/14/17 11:04 02/14/17 11:04 02/14/17 11:04 02/14/17 11:04 Discharge <CHINA AMADOR - Last Filed: 02/14/17 10:56> <ЕЛЕНА CARRERO - Last Filed: 02/14/17 11:10> - Discharge Clinical Impression: Viral URI with cough, Tobacco abuse, Tobacco abuse counseling Hypertension Qualifiers: Hypertension type: essential hypertension Qualified Code(s): I10 - Essential ( primary) hypertension Condition: Stable Disposition: HOME, SELF-CARE Additional Instructions: Upper Respiratory Illness You have a viral infection of the respiratory passages -- a "cold." This common infection causes nasal congestion, drainage, and often sore throat and cough. It is caused by a virus and is highly contagious. The disease usually lasts a week or more, though the worst symptoms are usually over in 3 or 4 days. There is no "cure" for the viral infection -- it must run its course. If there is a complication, such as bacterial infection in the nose, sinuses, middle ear, or bronchial tubes, antibiotics may be required, but antibiotics won 't affect the virus. If you smoke, you should STOP!! Drink plenty of fluids. A humidifier may help. An expectorant medication or decongestant may make you more comfortable. Use acetaminophen or ibuprofen for fever or aches. See the doctor if fever persists over two or three days, if there is any significant worsening of your symptoms, or if you simply fail to improve as expected. Please use nasal saline rinses such as a NetiPot or NeilMed Sinus Rinses. We have given you a shot of steroids to decrease her sore throat. Use the Tessalon Perles as directed for cough. You may also use over-the- counter antihistamines such as Sudafed and Benadryl as directed on the box. Prescriptions: Benzonatate [Tessalon Perles 100 mg Capsule] 100 mg PO Q8HP PRN #40 capsule PRN Reason: Forms: Elevated Blood Pressure, Smoking Cessation Education Scribe Attestation: 02/14/17 11:10 I personally performed the services described in the documentation, reviewed and edited the documentation which was dictated to the scribe in my presence, and it accurately records my words and actions. (ЕЛЕНА CARRERO) Scribe Documentation - Scribe Written by Radha:: Radha Bailey, 02/14/2017 10:33 acting as scribe for Dr.:: Nancy <CHINA AMADOR - Last Filed: 02/14/17 10:56>
--- NOTE | 2017-02-14 10:39 | RADIOLOGY REPORT (SQ) ---
EXAM DESCRIPTION: CHEST PA/LAT COMPLETED DATE/TIME: 02/14/2017 10:28 am REASON FOR STUDY: cough, fevers, r/o PNA COMPARISON: 02/01/2012 EXAM PARAMETERS: NUMBER OF VIEWS: two views TECHNIQUE: Digital Frontal and Lateral radiographic views of the chest acquired. RADIATION DOSE: NA LIMITATIONS: none FINDINGS: LUNGS AND PLEURA: No opacities, masses or pneumothorax. No pleural effusion. MEDIASTINUM AND HILAR STRUCTURES: No masses or contour abnormalities. HEART AND VASCULAR STRUCTURES: Heart normal size. No evidence for failure. BONES: No acute findings. HARDWARE: None in the chest. OTHER: No other significant finding. IMPRESSION: NO SIGNIFICANT RADIOGRAPHIC FINDING IN THE CHEST. TECHNICAL DOCUMENTATION: JOB ID: [id number] [employer]- All Rights Reserved
[2017-02-14] MEDS ORDERED: DEXAMETHASONE SOD PHOS INJ 10 MG/1 ML VIAL IM ONE (10:54)
[2017-02-14 11:07] VITALS: BP 138/82
== END 2017-02-14 11:10 | disposition home or self-care (01) ==
LOC: ER 09:58
DX: J06.9 Acute upper respiratory infection, unspecified (principal); B97.89 Other viral agents as the cause of diseases classified elsewhere; I10 Essential (primary) hypertension; R05 Cough; R50.9 Fever, unspecified; R11.10 Vomiting, unspecified; R53.81 Other malaise; R09.81 Nasal congestion; J02.9 Acute pharyngitis, unspecified; R10.9 Unspecified abdominal pain; H92.02 Otalgia, left ear; F17.200 Nicotine dependence, unspecified, uncomplicated
CPT/HCPCS: 99283; 96372; 71020; J1100

== ENCOUNTER 2017-02-25 17:20 | Emergency (ER) | payer SELFPAY ==
[2017-02-25 17:27] VITALS: BP 153/100
--- NOTE | 2017-02-25 18:02 | ER Document Report ---
HPI - HPI Pain Level: 4 Notes: Patient is a 41-year-old female no severe past medical history presents the ED complaining of an ingrown toenail to her right toe times months. Patient states that she does have pain when she pushes on her nail, but has not noticed any redness, streaks, abscess, purulent discharge. Patient is still able to ambulate without any difficulty. No other concerns or complaints. Patient has a drug allergy to sulfa. Denies any headache, fever, URI, sore throat, chest pain, palpitations, syncope, cough, shortness of breath, wheeze, dyspnea, abdominal pain, nausea/vomiting/diarrhea, urinary retention, dysuria, hematuria , numbness/tingling, muscle paralysis/weakness, or rash. - ROS Notes: REVIEW OF SYSTEMS: CONSTITUTIONAL : Denies fever, chills, or sweats. Denies recent illness. EENT: Denies eye, ear, throat, or mouth pain or symptoms. Denies nasal or sinus congestion or discharge. Denies throat, tongue, or mouth swelling or difficulty swallowing. CARDIOVASCULAR: Denies chest pain. Denies palpitations or racing or irregular heart beat. Denies ankle edema. RESPIRATORY: Denies cough, cold, or chest congestion. Denies shortness of breath, difficulty breathing, or wheezing. GASTROINTESTINAL: Denies abdominal pain or distention. Denies nausea, vomiting , or diarrhea. GENITOURINARY: Denies difficulty urinating, painful urination, burning, frequency, blood in urine, or discharge. MUSCULOSKELETAL: see hpi SKIN: Denies rash, lesions or sores. NEUROLOGICAL: Denies confusion or altered mental status. Denies passing out or loss of consciousness. Denies dizziness or lightheadedness. Denies headache. Denies weakness or paralysis or loss of use of either side. Denies problems with gait or speech. Denies sensory loss, numbness, or tingling. ALL OTHER SYSTEMS REVIEWED AND NEGATIVE. Dictation was performed using [employer] voice recognition software - REPRODUCTIVE Reproductive: DENIES: : Past Medical History - Social History Smoking Status: Unknown if Ever Smoked Family History: None - Past Medical History Cardiac Medical History: Reports: Hx Hypertension Pulmonary Medical History: Reports: Hx Asthma, Hx Bronchitis, Hx Pneumonia Denies: Hx Tuberculosis Renal/ Medical History: Reports: Hx Kidney Stones. Denies: Hx Peritoneal Dialysis Musculoskeltal Medical History: Reports Hx Musculoskeletal Trauma - ankle Psychiatric Medical History: Reports: Hx Attention Deficit Hyperactivity Disorder, Hx Bipolar Disorder, Hx Depression Traumatic Medical History: Reports: Hx Fractures Past Surgical History: Reports: Hx Kidney (Renal Surgery) - stone removal x5, Hx Tubal Ligation. Denies: Hx Pacemaker - Immunizations Immunizations up to date: Yes Hx Diphtheria, Pertussis, Tetanus Vaccination: Yes Vertical Provider Document - CONSTITUTIONAL Agree With Documented VS: Yes Notes: PHYSICAL EXAMINATION: GENERAL: Well-appearing, well-nourished and in no acute distress. A&Ox4 LUNGS: Breath sounds clear to auscultation bilaterally and equal. No wheezes rales or rhonchi. HEART: Regular rate and rhythm without murmurs, rubs, gallops. Musculoskeletal: Left foot/toes: FROM to passive/active. Strength 5+/5. N/V intact. Her nails do show mild fungal component throughout and thickening. There is no evidence of a secondary bacterial infection (no erythema, abscess, streaks, induration, felon). Extremities: No cyanosis, clubbing, or edema b/l. Peripheral pulses 2+. Capillary refill less than 3 seconds. NEUROLOGICAL: Normal speech, normal gait. Normal sensory, motor exams PSYCH: Normal mood, normal affect. SKIN: Warm, Dry, normal turgor, no rashes or lesions noted. - INFECTION CONTROL TRAVEL OUTSIDE OF THE [place] IN LAST 30 DAYS: No - RESPIRATORY O2 Sat by Pulse Oximetry: 98 Course - Re-evaluation Re-evalutation: 02/25/17 18:01 Patient is an afebrile, well-hydrated, 41-year-old female who presents the ED with left toe pain, possible ingrown toenail. There is currently no evidence of a secondary bacterial infection to the area. Vitals are stable. PE is otherwise unremarkable. Her symptoms have been ongoing for months. Patient's nails are noted to be thickened and most likely have a fungal component as well. I did review with Dr. Salgado. Without evidence of infection, we will not be opening up her nail in the ED. Her condition warrants a home health attendant consult with evaluation and management through them. Recommend conservative measures for symptoms. Epsom salt soaks may help. Recheck with your PCM in 3- 5 days as well. Return to the ED with any worsening/concerning symptoms otherwise as reviewed in discharge. Patient is in agreement. - Vital Signs Vital signs: Temp Pulse Resp BP Pulse Ox 98.1 F 110 H 16 153/100 H 98 02/25/17 17:22 02/25/17 17:22 02/25/17 17:22 02/25/17 17:22 02/25/17 17:22 Discharge - Discharge Clinical Impression: Toe pain Qualifiers: Laterality: left Qualified Code(s): M79.675 - Pain in left toe(s) Condition: Stable Disposition: HOME, SELF-CARE Instructions: Epsom Salt Soaks ([facility]) Additional Instructions: Rest, Ice, Compression, Elevation Epsom salt soaks Only fill the antibiotic if you are noticing any abscess, erythema, red streaks , or purulent discharge* Tylenol/ibuprofen as needed Light stretches daily Strength exercises as able Moist heat and massage may help F/u with your PCP in 3-5 days for a recheck Call and schedule an appointment with Podiatry. Return to the ED with any worsening symptoms and/or development of fever, headache, chest pain, palpitations, syncope, shortness of breath, trouble breathing, abdominal pain, n/v/d, muscle weakness/paralysis, numbness/tingling, swelling, redness, or other worsening symptoms that are concerning to you. Prescriptions: Cephalexin Monohydrate [Keflex 500 mg Capsule] 500 mg PO TID #30 capsule Forms: Elevated Blood Pressure Referrals: NEFTALI GOLD DPM [ACTIVE STAFF] - Follow up as needed MATHEW ADORNO DPM [ACTIVE STAFF] - Follow up as needed
== END 2017-02-25 18:17 | disposition home or self-care (01) ==
LOC: ER 17:20
DX: M79.675 Pain in left toe(s) (principal); I10 Essential (primary) hypertension; J45.909 Unspecified asthma, uncomplicated; Z88.2 Allergy status to sulfonamides
CPT/HCPCS: 99283

== ENCOUNTER 2017-06-09 23:33 | Emergency (ER) | payer SELFPAY ==
[2017-06-10] MEDS ORDERED: METHOCARBAMOL INJ/PF 1000 MG/10 ML SDV IV ONE (01:04)
[2017-06-10] MEDS ORDERED: METOCLOPRAMIDE HCL INJ/PF 10 MG/2 ML SDV IV ONE (01:04)
[2017-06-10] MEDS ORDERED: NORMAL SALINE 1000 ML 1,000 ML IV ONE (01:04)
[2017-06-10] MEDS ORDERED: DIPHENHYDRAMINE HCL 50 MG/ML VIAL IV ONE (01:04)
[2017-06-10] MEDS ORDERED: KETOROLAC TROMETHAMINE INJ/PF 30 MG/1 ML SDV IV ONE (01:04)
--- NOTE | 2017-06-10 01:06 | ER Document Report ---
ED Headache - General Chief Complaint: Neck pain and MCMANUS Stated Complaint: NECK PAIN,HEADACHE Time Seen by Provider: 06/10/17 00:56 Notes: Patient is a 41-year-old female that comes emergency department for chief complaint of headache, she states headaches have been going on for the past 2-3 days, she states it started with a tight pain in the right side of her neck and she intermittently gets throbbing headaches on the right side of her head. She states she has one behind her right now. She reports some nausea, denies vomiting, denies vision changes, denies focal numbness or weakness, denies injury or fever. She takes no daily medications, currently on her menstrual cycle, past history of tubal ligation and kidney stones, denies any other medical history. TRAVEL OUTSIDE OF THE [place] IN LAST 30 DAYS: No - Related Data Allergies/Adverse Reactions: Sulfa (Sulfonamide Antibiotics) Allergy (Intermediate, Verified 02/14/17 10:03) Hives Past Medical History - General Information source: Patient - Social History Smoking Status: Never Smoker Frequency of alcohol use: None Drug Abuse: None Lives with: Family Family History: None - Past Medical History Cardiac Medical History: Reports: Hx Hypertension Pulmonary Medical History: Reports: Hx Asthma, Hx Bronchitis, Hx Pneumonia Denies: Hx Tuberculosis Renal/ Medical History: Reports: Hx Kidney Stones. Denies: Hx Peritoneal Dialysis Musculoskeltal Medical History: Reports Hx Musculoskeletal Trauma - ankle Psychiatric Medical History: Reports: Hx Attention Deficit Hyperactivity Disorder, Hx Bipolar Disorder, Hx Depression Traumatic Medical History: Reports: Hx Fractures Past Surgical History: Reports: Hx Kidney (Renal Surgery) - stone removal x5, Hx Tubal Ligation. Denies: Hx Pacemaker - Immunizations Immunizations up to date: Yes Hx Diphtheria, Pertussis, Tetanus Vaccination: Yes Review of Systems - Review of Systems Constitutional: No symptoms reported EENT: No symptoms reported Cardiovascular: No symptoms reported Respiratory: No symptoms reported Gastrointestinal: See HPI Genitourinary: No symptoms reported Female Genitourinary: No symptoms reported Musculoskeletal: See HPI Skin: No symptoms reported Hematologic/Lymphatic: No symptoms reported Neurological/Psychological: See HPI Physical Exam - Vital signs Vitals: Temp Pulse Resp BP Pulse Ox 98.0 F 91 18 126/87 H 99 06/09/17 23:47 06/09/17 23:47 06/09/17 23:47 06/09/17 23:47 06/09/17 23:47 - General General appearance: Other - Patient appears mildly uncomfortable but not in distress In distress: None - HEENT Head: Normocephalic, Atraumatic Eyes: Normal Conjunctiva: Normal Extraocular movements intact: Yes Eyelashes: Normal Pupils: PERRL Ears: Normal External canal: Normal Tympanic membrane: Normal Sinus: Normal Nasal: Normal Mouth/Lips: Normal Mucous membranes: Normal Pharynx: Normal Neck: Normal. No: Meningismus - Respiratory Respiratory status: No respiratory distress Breath sounds: Normal. No: Decreased air movement, Wheezing - Cardiovascular Rhythm: Regular. No: Tachycardia Heart sounds: Normal auscultation, S1 appreciated, S2 appreciated - Abdominal Inspection: Normal Tenderness: Nontender. No: Tender, Guarding - Back Back: Normal, Tender - Tender along the right paracervical muscles, this is specific and reproducible, no midline tenderness, no saddle anesthesia, full range of motion of all extremities, normal distal neurovascular exam. Range of motion of the neck is still intact. - Extremities General upper extremity: Normal inspection, Nontender, Normal strength, Normal temperature General lower extremity: Normal inspection, Nontender, Normal strength, Normal temperature. 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 Will try medication for tension and migraine first. On reevaluation patient sleeping, easily aroused. She states her head feels good, her neck is much improved, requesting to go home. Low suspicion of SVT, ICH, or meningitis. Provided with medications, discussed recommendations, follow-up, return precautions. Patient states satisfaction and agreement. - Vital Signs Vital signs: Temp Pulse Resp BP Pulse Ox 98.2 F 67 18 139/88 H 99 06/10/17 02:39 06/10/17 02:39 06/10/17 02:39 06/10/17 02:39 06/10/17 02:39 Discharge - Discharge Clinical Impression: Neck pain Headache Qualifiers: Headache type: unspecified Headache chronicity pattern: unspecified pattern Intractability: not intractable Qualified Code(s): R51 - Headache Condition: Stable Disposition: HOME, SELF-CARE Additional Instructions: Your symptoms and response to treatment are consistent with tension headache triggering a migraine. Drink plenty fluids, apply heat to the right side of your neck, do gentle stretches of the neck, massage the neck out. Take Robaxin muscle relaxer as prescribed, take Fioricet if needed for headaches. Follow-up with primary care for additional evaluation and management. Return for any concerning or worsening symptoms including vomiting, fever, returned or severe headache, or any other concerning or worsening symptoms. Prescriptions: Butalb/Acetaminophen/Caffeine [Fioricet (50-325-40 mg) Tablet] 1 tab PO Q4HP PRN #30 tab PRN Reason: Methocarbamol [Robaxin 750 mg Tablet] 750 mg PO Q6 #20 tablet
[2017-06-10 02:42] VITALS: BP 139/88
== END 2017-06-10 02:42 | disposition home or self-care (01) ==
LOC: ER 23:33
DX: M54.2 Cervicalgia (principal); R51 Headache; R11.0 Nausea
CPT/HCPCS: 99283; 96361; 96374; 96375; J1200; J2800; J1885; J2765; J7030

== ENCOUNTER 2017-07-26 02:38 | Emergency (ER) | payer SELFPAY ==
[2017-07-26] MEDS ORDERED: ACETAMINOPHEN 325 MG TABLET PO ONE (02:55)
--- NOTE | 2017-07-26 03:42 | RADIOLOGY REPORT (SQ) ---
EXAM DESCRIPTION: ANKLE RIGHT COMPLETE CLINICAL HISTORY: 41 years, Female, injury COMPARISON: None. NUMBER OF VIEWS: 3 LIMITATIONS: None. FINDINGS: 0.7 cm avulsive fracture at the inferior right lateral malleolus without significant displacement. No evidence of healing. Moderate lateral malleolar swelling. Minimally splayed talotibial joint laterally. IMPRESSION: 0.7 cm avulsive fracture of the right lateral malleolus.
[2017-07-26] MEDS ORDERED: OXYCODONE-ACETAMINOPHEN 5-325 MG TABLET PO ONE (04:03)
[2017-07-26] MEDS ORDERED: HYDROCODONE/ACETAMINOPHEN 5-325 MG (6 TAB/ER DISP) PO PRN (04:07)
--- NOTE | 2017-07-26 04:21 | ER Document Report ---
HPI - HPI Onset: Just prior to arrival Onset/Duration: Sudden Pain Level: 5 Notes: Patient is a 41-year-old female who presents to the emergency department with complaint of right ankle pain. Patient states that she was walking down some steps when she stepped wrong and felt a crack. Patient has pain to the right lateral malleolar area. Patient states that the pain is constant and that she is unable to bear weight on this. Patient denies any past significant medical history. - REPRODUCTIVE Reproductive: DENIES: : - MUSCULOSKELETAL Musculoskeletal: REPORTS: Extremity pain - R ankle Past Medical History - General Information source: Patient - Social History Smoking Status: Current Every Day Smoker Family History: Reviewed & Not Pertinent Patient has suicidal ideation: No Patient has homicidal ideation: No - Past Medical History Cardiac Medical History: Reports: Hx Hypertension Pulmonary Medical History: Reports: Hx Asthma, Hx Bronchitis, Hx Pneumonia Denies: Hx Tuberculosis Renal/ Medical History: Reports: Hx Kidney Stones. Denies: Hx Peritoneal Dialysis Musculoskeltal Medical History: Reports Hx Musculoskeletal Trauma - ankle Psychiatric Medical History: Reports: Hx Attention Deficit Hyperactivity Disorder, Hx Bipolar Disorder, Hx Depression Traumatic Medical History: Reports: Hx Fractures Past Surgical History: Reports: Hx Kidney (Renal Surgery) - stone removal x5, Hx Tubal Ligation. Denies: Hx Pacemaker - Immunizations Immunizations up to date: Yes Hx Diphtheria, Pertussis, Tetanus Vaccination: Yes Vertical Provider Document - CONSTITUTIONAL Exam Limitations: No Limitations - INFECTION CONTROL TRAVEL OUTSIDE OF THE [place] IN LAST 30 DAYS: No - HEENT HEENT: Atraumatic - NECK Neck: Normal Inspection - RESPIRATORY Respiratory: Breath Sounds Normal - CARDIOVASCULAR Cardiovascular: Regular Rate, Regular Rhythm - MUSCULOSKELETAL/EXTREMETIES Musculoskeletal/Extremeties: Tender - Left lateral ankle tender, swollen, no ecchymosis noted. Capillary refill less than 3 seconds, normal sensation and normal motor sensory distal to injury. Course - Re-evaluation Re-evalutation: X-ray shows avulsive fracture to right lateral malleolus that is nondisplaced. Patient will be splinted with a posterior ankle splint and given crutches. Patient will need follow-up with orthopedics in 3-5 days as soon as swelling reduces and not weight-bear until this time. Patient will be given pain medication and strict ED return precautions. - Vital Signs Vital signs: Temp Pulse Resp BP Pulse Ox 97.8 F 92 18 130/78 H 97 04/28/18 02:58 07/26/17 02:58 07/26/17 02:58 07/26/17 02:58 07/26/17 02:58 Discharge - Discharge Clinical Impression: Malleolar fracture Qualifiers: Encounter type: initial encounter Fracture type: closed Laterality: right Qualified Code(s): S82.891A - Other fracture of right lower leg, initial encounter for closed fracture Condition: Stable Disposition: HOME, SELF-CARE Instructions: Use of Crutches ([facility]), Ice & Elevation ([facility]), Oral Narcotic Medication ([facility]) Additional Instructions: Fractured Ankle (malleolar) You have a fracture the bone of the lower leg at the ankle. The initial treatment is immobilization, elevation, and ice packs. Depending on the type of fracture, immobilization may consist of a splint or cast. The length of time required for healing depends on the type of fracture. You will be referred to an orthopedic surgeon who will re-assess you periodically to make certain that the bone heals without complications. It's important that you follow the instructions given you. Please use the crutches as you should not bear any weight on this area. Return to the emergency department if you develop pain that is not relived by your pain medications or significant swelling. Follow up with Ortho this week, call Friday to make an appointment. Prescriptions: Oxycodone HCl/Acetaminophen [Percocet 5-325 mg Tablet] 1 - 2 tab PO Q4H PRN #10 tablet PRN Reason: Referrals: BREANNE CABELLO MD [ACTIVE STAFF] - Follow up as needed
[2017-07-26 05:48] VITALS: BP 132/86
== END 2017-07-26 05:48 | disposition home or self-care (01) ==
LOC: ER 02:38
DX: S82.64XA Nondisplaced fracture of lateral malleolus of right fibula, initial encounter for closed fracture (principal); X58.XXXA Exposure to other specified factors, initial encounter; I10 Essential (primary) hypertension; J45.909 Unspecified asthma, uncomplicated; F17.200 Nicotine dependence, unspecified, uncomplicated
CPT/HCPCS: 99283

== ENCOUNTER 2017-08-09 23:42 | Emergency (ER) | payer SELFPAY ==
--- NOTE | 2017-08-10 01:53 | RADIOLOGY REPORT (SQ) ---
EXAM DESCRIPTION: XR ANKLE 3 VIEWS CLINICAL HISTORY: 41 years Female, injury COMPARISON: 4..18 Findings: No significant change in alignment or healing of previously described avulsive fracture of the right lateral malleolus seen through casting-bandaging material compared with prior exam. IMPRESSION: Fracture follow-up.
--- NOTE | 2017-08-10 03:05 | ER Document Report ---
ED General - General Chief Complaint: Foot Pain Stated Complaint: FOOT INJURY Time Seen by Provider: 08/10/17 01:15 Notes: Patient is a pleasant 41-year-old female who presents with complaints of getting her cast wet. She said her grandson fell in the pool and she jumped and save him. She has a cast on which she has a small distal fibular avulsion fracture. Patient says she also has some pain over the top of her foot since this occurred. She has no other complaints at this time. TRAVEL OUTSIDE OF THE [place] IN LAST 30 DAYS: No - Related Data Allergies/Adverse Reactions: Sulfa (Sulfonamide Antibiotics) Allergy (Intermediate, Verified 08/09/17 23:47) Hives Past Medical History - Social History Smoking Status: Unknown if Ever Smoked Frequency of alcohol use: None Drug Abuse: None Family History: Reviewed & Not Pertinent Patient has suicidal ideation: No Patient has homicidal ideation: No - Past Medical History Cardiac Medical History: Reports: Hx Hypertension Pulmonary Medical History: Reports: Hx Asthma, Hx Bronchitis, Hx Pneumonia Denies: Hx Tuberculosis Renal/ Medical History: Reports: Hx Kidney Stones. Denies: Hx Peritoneal Dialysis Musculoskeltal Medical History: Reports Hx Musculoskeletal Trauma - ankle Psychiatric Medical History: Reports: Hx Attention Deficit Hyperactivity Disorder, Hx Bipolar Disorder, Hx Depression Traumatic Medical History: Reports: Hx Fractures Past Surgical History: Reports: Hx Kidney (Renal Surgery) - stone removal x5, Hx Tubal Ligation. Denies: Hx Pacemaker - Immunizations Immunizations up to date: Yes Hx Diphtheria, Pertussis, Tetanus Vaccination: Yes Review of Systems - Review of Systems Notes: My Normal Review Basic REVIEW OF SYSTEMS: CONSTITUTIONAL : Denies fever, chills, or sweats. Denies recent illness. MUSCULOSKELETAL: Right foot pain SKIN: Denies rash or skin lesions. NEUROLOGICAL: Denies sensory or motor loss. ALL OTHER SYSTEMS REVIEWED AND NEGATIVE. Physical Exam - Vital signs Vitals: Temp Pulse Resp BP Pulse Ox 98.6 F 102 H 18 138/77 H 96 08/09/17 23:56 08/09/17 23:56 08/09/17 23:56 08/09/17 23:56 08/09/17 23:56 - Notes Notes: General Appearance: Well nourished, alert, cooperative, no acute distress, no obvious discomfort. Well-appearing. Vitals: reviewed, See vital signs table. Eyes: PERRL, EOMI, Conjuctiva clear Mouth: No decreasd moisture Extremities: strength 5/5 in all extremities, good pulses in all extremities, patient is a small amount of pain to palpation over the proximal dorsum of the foot. No significant swelling. Patient has pain to palpation over lateral aspect of the foot as well., no edema. Skin: warm, dry, appropriate color, no rash Neuro: speech clear, oriented x 3, normal affect, responds appropriately to questions. Course - Re-evaluation Re-evalutation: 08/10/17 06:10 I cut off the patient's cast. We then dried her foot. I then placed a sugar tong splint the patient for support. We will have her follow-up closely with her orthopedist for reevaluation. X-ray did not show any new fractures. X- rays performed of the ankle. Patient did have some pain over her foot but it was over the proximal midfoot and I was able to see this very well on x-ray and did not see any fracture. Dictation of this chart was performed using voice recognition software; therefore, there may be some unintended grammatical errors. - Vital Signs Vital signs: Temp Pulse Resp BP Pulse Ox 98.5 F 81 20 142/74 H 96 08/10/17 03:16 08/10/17 03:16 08/10/17 03:16 08/10/17 03:16 08/10/17 03:16 Procedures - Immobilization right leg Immobilizer type: Ankle stirrup Performed by: Provider Alignment checked and good: Yes Discharge - Discharge Clinical Impression: Fibula fracture Qualifiers: Encounter type: subsequent encounter Fibula location: distal Fracture type: closed Fracture morphology: unspecified fracture morphology Laterality: right Fracture healing: with routine healing Qualified Code(s): S82.831D - Other fracture of upper and lower end of right fibula, subsequent encounter for closed fracture with routine healing Condition: Good Disposition: HOME, SELF-CARE Additional Instructions: Please follow up with your orthopedist this week for reevaluation and placing a new cast. Please return to the ER immediately if you have worsening pain, fevers , increasing swelling, or if you have any further concerns. Please loosen the mayco wrap on your plaint if you feel it is becoming too tight.
[2017-08-10] MEDS ORDERED: IBUPROFEN 600 MG TABLET PO ONE (03:23)
[2017-08-10 03:27] VITALS: BP 142/74
== END 2017-08-10 03:34 | disposition home or self-care (01) ==
LOC: ER 23:42
PROC: 2W3QX1Z Immobilization of Right Lower Leg using Splint (ICD-10-PCS; principal; 2017-08-09)
DX: S82.831D Other fracture of upper and lower end of right fibula, subsequent encounter for closed fracture with routine healing (principal); X58.XXXD Exposure to other specified factors, subsequent encounter
CPT/HCPCS: 99283